=== PATIENT | female | born 1985 | race Two or more races ===

== ENCOUNTER 2017-05-13 18:28 | Emergency (ER) | payer OTHER ==
[~2017-05-13] VITALS: Ht 160 cm; Wt 66.1 kg
[~2017-05-13 18:28] MED LIST: DOCU-131 PO; IBUP-1222 PO; OXYC-302 PO; PREN1TAB56 PO
[2017-05-13] MEDS ORDERED: ACETAMINOPHEN 325 MG TABLET ONE (18:56)
[2017-05-13] MEDS ORDERED: ACETAMINOPHEN 325 MG TABLET PO ONE (19:00)
[2017-05-13] MEDS ORDERED: SODIUM CHLORIDE 0.9% 1,000ML IVBOLUS ONE (19:00)
[2017-05-13 19:26] LABS: RAPID INFLUENZA A Negative (Negative); RAPID INFLUENZA B Negative (Negative)
[2017-05-13 19:31] LABS: HEMATOCRIT 43.7 % (34.6-47.8); HEMOGLOBIN 15.2 g/dL (11.7-16.4); WHITE BLOOD COUNT 15.4 x10^3/uL (3.4-10)
[2017-05-13 19:35] LABS: BLOOD UREA NITROGEN 10 mg/dL (7-18)
[2017-05-13 21:14] VITALS: BP 105/72
== END 2017-05-13 21:41 | disposition home or self-care (01) ==
LOC: ED 19:49
DX: J02.8 Acute pharyngitis due to other specified organisms (principal); B34.9 Viral infection, unspecified
CPT/HCPCS: 36415; 71010; 80048; 81001; 82040; 83605; 84145; 85025; 87040; 87081; 87147; 87400; 87880; 99285